=== PATIENT | female | born 1975 | race Caucasian/White ===

== ENCOUNTER 2016-04-04 21:35 | Emergency (ER) ==
[~2016-04-04 21:35] MED LIST: ATIVAN IV ONE
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
[2016-04-04] MEDS ORDERED: TYLENOL PO ONE (23:04)
[2016-04-04] MEDS ORDERED: FLEXERIL PO ONE (23:05)
[2016-04-04 23:40] VITALS: BP 125/89
--- NOTE | 2016-04-05 09:10 | Diag Imaging Result Document ---
PROCEDURE NAME: CHEST-2 VIEWS - 04/04/2016 TWO VIEWS OF THE CHEST: FINDINGS: There is no evidence of acute cardiac or pulmonary disease. Compared to the previous examination of 03/19/2016, there has been resolution of the atelectasis seen previously in the right middle lobe. IMPRESSION: No acute disease.
== END 2016-04-04 23:40 | disposition home or self-care (01) ==
LOC: EDBD → ED 21:35
DX: F43.0 Acute stress reaction (principal); R05 Cough; R11.2 Nausea with vomiting, unspecified; R50.9 Fever, unspecified; R55 Syncope and collapse; R53.83 Other fatigue; R06.02 Shortness of breath; R06.2 Wheezing; R06.4 Hyperventilation; M79.673 Pain in unspecified foot; S90.422A Blister (nonthermal), left great toe, initial encounter; S90.821A Blister (nonthermal), right foot, initial encounter; I10 Essential (primary) hypertension; J43.9 Emphysema, unspecified; E11.9 Type 2 diabetes mellitus without complications; Z87.442 Personal history of urinary calculi
CPT/HCPCS: 71020; J2060

== ENCOUNTER 2016-04-10 19:05 | Emergency (ER) ==
--- NOTE | 2016-04-10 20:13 | PROVIDER DOCUMENTATION ---
HPI-General Adult - General Chief Complaint: Cold Symptoms Stated Complaint: COUGH Time Seen by Provider: 04/10/16 19:16 Source: patient Allergies/Adverse Reactions: Patient Allergies Allergy/AdvReac Type Severity Reaction Status Date / Time meperidine HCl * AdvReac Mild Unknown Verified 04/10/16 19:16 [From Demerol] morphine AdvReac Mild Unknown Verified 04/10/16 19:16 Home Medications: Home Medication List Medication Instructions Recorded Confirmed Last Taken Type Azithromycin [Zithromax Z-Sen] 250 mg PO DIRECTED #1 pkg 04/10/16 Unknown Rx Methylprednisolone [Medrol Dosepak] 4 mg PO DIRECTED #1 package 04/10/16 Unknown Rx - History of Present Illness -Gen Adult Nature of Presenting Problems: Pt is a 41 y/o F c chief complaint of cough and cold symptoms for nearly 2 weeks. Pt states OTC meds have not relieved her symptoms. Pt denies CP or SOB. She has a h/o COPD and has significant wheezing. Pt smokes 1ppd Cigarettes daily. On arrival, pt is in minimal distress. Review of Systems - Adult - REVIEW OF SYSTEMS - ADULT Constitutional: reports: no symptoms reported. denies: chills, fatique Eyes: reports: no symptoms reported. denies: blurred vision, double vision Ears, Nose, Mouth & Throat: reports: no symptoms reported. denies: ear pain, nose pain Cardiovascular: reports: no symptoms reported. denies: chest pain, heart murmur Respiratory: reports: cough, wheezing Gastrointestinal: reports: no symptoms reported. denies: abdominal pain, nausea Genitourinary: reports: no symptoms reported. denies: dysuria, hematuria Musculoskeletal: reports: no symptoms reported. denies: joint pain, joint swelling Integumentary: reports: no symptoms reported. denies: itching, rash Neurological: reports: no symptoms reported. denies: numbness, paresthesia Psychiatric: reports: no symptoms reported. denies: anxiety, emotional problems Endocrine: reports: no symptoms reported. denies: cold intolerance, heat intolerance Hematologic/Lymphatic: reports: no symptoms reported. denies: blood clots, low blood count Allergic/Immunologic: reports: no symptoms reported All Other Systems: Reviewed and Negative Past History - Adult - PAST MEDICAL HISTORY-ADULT Review of Records: reports: Old Records Reviewed, Nursing Assessment Review, Medications Reviewed, Social history reviewed & non-contributory. Major Childhood Illnesses: reports: denies history Cardiovascular: reports: HTN Respiratory: reports: COPD (emphysema) Gastrointestinal: reports: denies history Obstetrical/Gynecological: reports: denies history Genitourinary: reports: kidney stones Musculoskeletal: reports: denies history Neurological: reports: denies history Psychiatric: reports: anxiety, bipolar, psychiatric problems Endocrine/Immune: reports: Diabetes Other Conditions: reports: denies history - PRIOR SURGERIES/PROCEDURES Surgical/Procedure History: reports: cholecystectomy, BTL, tonsillectomy, other (kidney stone removal, upper gi, nose, cardiac catheter, D & C) - PRIOR HOSPITALIZATIONS Prior Hospitalizations: reports: none - IMMUNIZATION STATUS Childhood Immunizations: UTD, See Nurse Assessment Flu Vaccine: See Nurse Assessment - FAMILY HISTORY Family History: reviewed, not pertinent - SOCIAL HISTORY Smoking: cigarettes Provider spent 3-5 mins advising pt. on dangers of tobacco.: Discussed manners to quit use, and f/u contacts for add'l counseling. Substance Use: none/never Alcohol Use Frequency: never Living Situation: family Physical Exam-General - PHYSICAL EXAM-ADULT Initial Vital Signs Reviewed: Yes - CONSTITUTIONAL General Appearance: appears well, alert, no apparent distress - EYES Eyes: PERRL/EOMI, pink conjunctivae - HEAD, EARS, NOSE, MOUTH & THROAT HENMT: normocephalic/atraumatic, moist mucous membranes, normal ENT inspection - NECK Neck: non-tender - RESPIRATORY Respiratory: chest non-tender, wheezing (cough and wheezing) - CARDIOVASCULAR Cardiovascular: normal peripheral pulses - CHEST (BREASTS) Chest/Breast: deferred - GASTROINTESTINAL (ABDOMEN) Abdominal Exam: normal bowel sounds, non tender, soft - MUSCULOSKELETAL Back Exam: normal inspection, no CVA tenderness, no vertebral tenderness Extremity: normal range of motion, non-tender, normal gait - SKIN Integumentary: normal color, normal turgor, warm/dry - NEUROLOGIC Neurologic: grossly normal, no motor/sensory deficits - PSYCHIATRIC Psych/Mental Status: normal mood/affect, normal thought content, normal thought process, oriented x 3 Progress - PLAN OF CARE/RESULTS Progress/Plan/Lab Results: Orders Category Date Time Status CHEST-2 VIEWS [RAD] Stat Exams 04/10/16 20:25 Completed Flu Swab [INFLUENZA SCREEN A/B] Stat Lab 04/10/16 19:10 Completed Albuterol 2.5MG/Ipratrop 0.5MG [Duoneb (A & A)] Med 04/10/16 20:25 Discontinued 6 ml INH NOW ONE CefTRIAXONE [Rocephin] Med 04/10/16 20:25 Discontinued 1 gm IM NOW ONE Dexamethasone [Decadron] Med 04/10/16 20:25 Discontinued 10 mg IM NOW ONE Lidocaine 1% Pf [Xylocaine-Mpf 1%] Med 04/10/16 20:25 Discontinued 5 ml INJ NOW ONE Aerosol Treatments Routine Oth 04/10/16 20:25 Completed Aerosol Treatments Stat Oth 04/10/16 20:25 Completed Vital Signs - 24 hr 04/10/16 04/10/16 04/10/16 19:11 21:00 21:22 Temperature 98.3 F Pulse Rate 103 H 100 H 67 Respiratory 18 18 18 Rate Blood Pressure 112/71 116/62 O2 Sat by Pulse 100 98 Oximetry - XRAY 1 XRAY Study: Chest Impression: Abnormal (Prominent juan-hilar markings that may represent bronchitis - radiology) Departure - Departure Time of Disposition Order: 20:44 DIAGNOSIS: Bronchitis, Tobacco abuse Disposition: HOME 01 Certified Medical Emergency: Emergent Condition: Stable Additional Instructions: ED Follow Up Instructions: You have been treated by a care provider in the Emergency Department. These instructions are being provided to you so you can have an understanding of how to care for yourself upon discharge. Upon discharge from the Emergency Department, you are responsible for making arrangements for follow-up care by a physician of your choice. Take all prescribed medications as directed. Return to the Emergency Department immediately for any new or worsening symptoms. You may call the Physician Referral phone number at [phone] to obtain a list of Physicians who are taking new patients. Prescriptions: Methylprednisolone [Medrol Dosepak] 4 mg PO DIRECTED #1 package Azithromycin [Zithromax Z-Sen] 250 mg PO DIRECTED #1 pkg Referrals: None,PCP [Primary Care Provider] - Forms: Return to School/Parent Work Instructions: Tobacco Use Disorder, Acute Bronchitis Attestation - Physician/ LADY Attestation Patient care was provided by Advanced Practice Provider:: Yes Advanced Practice Provider:: Jose Miller Advanced Practice Provider documentation review:: The Mid-level provider documentation, treatment plan and medical decision making was reviewed by the physician who agrees with all treatment and medical decision making by the MLP.
[2016-04-10] MEDS ORDERED: DECADRON IM ONE (20:25)
[2016-04-10] MEDS ORDERED: XYLOCAINE-MPF 1% INJ ONE (20:25)
[2016-04-10] MEDS ORDERED: ROCEPHIN IM ONE (20:25)
[2016-04-10] MEDS ORDERED: DUONEB (A & A) INH ONE (20:25)
[2016-04-10 21:23] VITALS: BP 116/62
--- NOTE | 2016-04-11 09:28 | Diag Imaging Result Document ---
PROCEDURE NAME: CHEST-2 VIEWS - 04/10/2016 CHEST, 2 VIEWS: COMPARISON: 04/04/2016. FINDINGS: Heart size is normal. There is mild prominence of perihilar markings, most conspicuous on the left. There is no dense consolidation, pleural effusion, or pneumothorax identified. There is a tiny metallic foreign body noted over the anterior upper chest at the midline compatible with an object such as a neckless on the patient's skin. IMPRESSION: Prominence of perihilar markings which may relate to bronchitis. No discrete pneumonia.
== END 2016-04-10 21:33 | disposition home or self-care (01) ==
LOC: ED 19:05
DX: J40 Bronchitis, not specified as acute or chronic (principal); R05 Cough; R06.2 Wheezing; I10 Essential (primary) hypertension; J44.9 Chronic obstructive pulmonary disease, unspecified; F17.210 Nicotine dependence, cigarettes, uncomplicated; E11.9 Type 2 diabetes mellitus without complications; Z71.6 Tobacco abuse counseling; Z87.442 Personal history of urinary calculi
CPT/HCPCS: 71020; 87804; 94640; J0696

== ENCOUNTER 2016-04-24 13:46 | Emergency (ER) ==
[2016-04-24 14:06] VITALS: BP 133/89
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
[2016-04-24 16:11] LABS: URINE CULTURE NEEDED? NO; URINE SOURCE CLEAN CATCH
[2016-04-24] MEDS ORDERED: ATIVAN IM ONE (16:20)
[2016-04-24 16:44] LABS: BILIRUBIN URINE NEGATIVE (NEGATIVE); BLOOD URINE NEGATIVE (NEGATIVE); COLOR YELLOW; GLUCOSE URINE NEGATIVE (NEGATIVE); LEUKOCYTES URINE NEGATIVE (NEGATIVE); NITRITE URINE NEGATIVE (NEGATIVE); PROTEIN URINE NEGATIVE (NEGATIVE); SP GRAVITY URINE 1.021; TURBIDITY URINE CLEAR (CLEAR); UROBILINOGEN URINE NORMAL (NORMAL)
[2016-04-24 16:45] LABS: URINE MICRO REVIEW NEEDED? YES
[2016-04-24 17:03] LABS: UR EPITHELIAL CELLS <10 /HPF (<10); URINE BACTERIA NEGATIVE /HPF; URINE CASTS NONE SEEN; URINE CRYSTALS CA OXALATE PRESENT; URINE RBC <10 /HPF (<10); URINE SMALL ROUND CELLS NONE SEEN; URINE WBC <10 /HPF (<10)
[2016-04-24 17:06] LABS: UR AMPHETAMINES QUAL NONE DETECTED (NONE DETECT); UR BARBITUATES QUAL PRESUMPTIVE POSITIVE (NONE DETECT); UR BENZODIAZEPIN QUAL PRESUMPTIVE POSITIVE (NONE DETECT); UR CANNABINOIDS QUAL NONE DETECTED (NONE DETECT); UR COCAINE QUAL NONE DETECTED (NONE DETECT); UR METHADONE QUAL NONE DETECTED (NONE DETECT); UR OPIATES QUAL NONE DETECTED (NONE DETECT); UR OXYCODONE QUAL NONE DETECTED (NONE DETECT); UR PCP QUAL NONE DETECTED (NONE DETECT)
== END 2016-04-24 17:10 | disposition home or self-care (01) ==
LOC: ED 13:46
DX: F41.9 Anxiety disorder, unspecified (principal); I10 Essential (primary) hypertension; J44.9 Chronic obstructive pulmonary disease, unspecified; E11.9 Type 2 diabetes mellitus without complications; F41.8 Other specified anxiety disorders; Z79.899 Other long term (current) drug therapy; Z87.442 Personal history of urinary calculi
CPT/HCPCS: 81001; 81025; 96374; G0480; J2060; 80324; 80345; 80346; 80349; 80353; 80358; 80361; 80365; 83992

== ENCOUNTER 2016-08-22 10:15 | Observation (INO) ==
[2016-08-22] MEDS ORDERED: NORCO-7.5 PO ONE (11:25)
[2016-08-22] MEDS ORDERED: ZOFRAN ODT PO ONE (11:25)
[2016-08-22] MEDS ORDERED: NORCO-7.5 ONE (11:26)
[2016-08-22] MEDS ORDERED: ZOFRAN ODT ONE (11:26)
[2016-08-22 12:21] LABS: BASO% 0.6 % (0.0-0.8); EOS# 0.15 X1000 (0.0-0.7); EOS% 1.9 % (0.0-10.0); HEMATOCRIT 41.3 % (37.0-47.0); HEMOGLOBIN 13.8 g/dL (12.0-16.0); IMM GRAN# 0.01 X1000 (0.0-0.04); IMM GRAN% 0.1 % (0.0-0.5); LYMPH# 2.91 X1000 (1.2-3.4); LYMPH% 36.7 % (20.5-51.1); MANUAL DIFF NEEDED? NO; MCH 30.4 PG (27-31); MCHC 33.4 g/dL (33-37); MONO# 0.64 X1000 (0.11-0.59); MONO% 8.1 % (1.7-9.3); MPV 10.4 FL (7.4-10.4); NEUT% 52.6 % (42.2-75.2); PLT 266 X1000 (130-400); RBC 4.54 XMIL (4.2-5.4)
[2016-08-22 12:21] LABS: URINE CULTURE PL NEEDED? NO
[2016-08-22] MEDS ORDERED: ZOFRAN PO PRN (12:22)
[2016-08-22] MEDS ORDERED: VANCOMYCIN 1 GM/NS 1 GM/250 ML IVPB IV ONE (12:24)
[2016-08-22 12:31] LABS: BILIRUBIN URINE NEGATIVE (NEGATIVE); BLOOD URINE NEGATIVE (NEGATIVE); CLARITY CLEAR (CLEAR); COLOR YELLOW; GLUCOSE URINE NEGATIVE (NEGATIVE); LEUKOCYTES URINE NEGATIVE (NEGATIVE); NITRITE URINE NEGATIVE (NEGATIVE); PROTEIN URINE NEGATIVE (NEGATIVE); SP GRAVITY URINE 1.005; UROBILINOGEN URINE NORMAL
--- NOTE | 2016-08-22 12:33 | PROVIDER DOCUMENTATION ---
This chart was entered by Nataliia Mckeon Scribe, acting as scribe for Ángel Nava PA. HPI-Rash/Wound/ReCheck - General Chief Complaint: Post Op Complaint Stated Complaint: POST OPT COMPLAINT Time Seen by Provider: 08/22/16 11:05 Source: patient Allergies/Adverse Reactions: Allergies Allergy/AdvReac Type Severity Reaction Status Date / Time meperidine HCl * AdvReac Mild Unknown Verified 08/22/16 10:41 [From Demerol] morphine AdvReac Mild Unknown Verified 08/22/16 10:41 Home Medications: Home Medication List Medication Instructions Recorded Confirmed Last Taken Type Clonazepam [Klonopin] 2 mg PO PRN PRN 04/24/16 08/17/16 4 Days Ago History Hydrocodone/Acetaminophen [[place] 1 each PO Q6H PRN PRN #20 tablet 07/27/1608/17 1 Day Ago Rx 7.5-325 Tablet] Clindamycin [Cleocin] 300 mg PO TID #21 capsule 08/18/16 Unknown Rx - History of Present Illness-Dermatology Nature of Presenting Problem: 41 year old female presents to the ER with complaint of a post op wound infection of right breast above the nipple at surgery site. Pt had sx two weeks ago for right breast biopsy. Pt was seen at [facility] one week ago for wound infection. Culture of would one week ago showed no growth. Today pt presents with erythema around wound with foul odor drainage. Pt denies fever but states she is in severe pain and is hallucinating. Location: reports: chest (right breast) Onset/Duration: reports: other (2 weeks) Timing: reports: still present Context/Associated Symptoms: reports: incised wound Review of Systems - Adult - REVIEW OF SYSTEMS - ADULT Constitutional: denies: chills, fever Eyes: reports: no symptoms reported Ears, Nose, Mouth & Throat: reports: no symptoms reported Cardiovascular: reports: no symptoms reported Respiratory: reports: no symptoms reported Gastrointestinal: reports: no symptoms reported Genitourinary: reports: no symptoms reported Musculoskeletal: reports: no symptoms reported Integumentary: reports: no symptoms reported Neurological: reports: no symptoms reported Psychiatric: reports: no symptoms reported Endocrine: reports: no symptoms reported Hematologic/Lymphatic: reports: no symptoms reported Allergic/Immunologic: reports: no symptoms reported All Other Systems: Reviewed and Negative Past History - Adult - PAST MEDICAL HISTORY-ADULT Review of Records: reports: Nursing Assessment Review, Medications Reviewed Major Childhood Illnesses: reports: denies history Cardiovascular: reports: HTN Respiratory: reports: COPD (emphysema) Gastrointestinal: reports: denies history Obstetrical/Gynecological: reports: denies history Genitourinary: reports: kidney stones Musculoskeletal: reports: denies history Neurological: reports: denies history Psychiatric: reports: anxiety, bipolar, psychiatric problems Endocrine/Immune: reports: Diabetes Other Conditions: reports: denies history - PRIOR SURGERIES/PROCEDURES Surgical/Procedure History: reports: cholecystectomy, BTL, tonsillectomy, other (kidney stone removal, upper gi, nose, cardiac catheter, D & C) - PRIOR HOSPITALIZATIONS Prior Hospitalizations: reports: none - IMMUNIZATION STATUS Childhood Immunizations: UTD, See Nurse Assessment Flu Vaccine: See Nurse Assessment - FAMILY HISTORY Family History: reviewed, not pertinent Physical Exam-General - PHYSICAL EXAM-ADULT Initial Vital Signs Reviewed: Yes - CONSTITUTIONAL General Appearance: alert, moderate distress (Pt continues to state that she's going to from this breast abscess and she's in so much pain, that oral pain medication will not help enough) - EYES Eyes: PERRL/EOMI, pink conjunctivae - HEAD, EARS, NOSE, MOUTH & THROAT HENMT: normocephalic/atraumatic, moist mucous membranes - NECK Neck: full range of motion, supple, normal inspection - RESPIRATORY Respiratory: lungs clear. negative: chest non-tender (tender on the right breast), crackles, rales, rhonchi, stridor, wheezing - CARDIOVASCULAR Cardiovascular: no edema, no gallop, no JVD, no murmur, tachycardia - CHEST (BREASTS) Chest/Breast: tenderness. negative: normal breast inspection (erythematous breast abscess with purulent foul smelling drainage. Pt has significant pain while I expressed fluid), nipple discharge - SKIN Integumentary: erythema (as above in the right breast) - NEUROLOGIC Neurologic: personnel counselor II-XII nml as tested - PSYCHIATRIC Psych/Mental Status: anxious, tearful, other (pt is talking so quickly and unable to understand everything she's saying other than she's in pain and she's going to from it. She became upset takling about her visit to [facility], stating that there were "junkies with no problems getting seen before me and I'm legit! I'm dying!") Progress - PLAN OF CARE/RESULTS Progress/Plan/Lab Results: Vital Signs - 8 hr 08/22/16 10:35 Temperature 98.4 F Pulse Rate 108 H Respiratory Rate 18 Blood Pressure 109/097 O2 Sat by Pulse Oximetry 99 Laboratory Results - last 24 hr 08/22/16 08/22/16 11:48 12:05 WBC 7.92 RBC 4.54 Hgb 13.8 Hct 41.3 MCV 91.0 MCH 30.4 MCHC 33.4 RDW Std Deviation 13.4 Plt Count 266 MPV 10.4 Immature Gran % (Auto) 0.1 Neut % (Auto) 52.6 Lymph % (Auto) 36.7 [place] % (Auto) 8.1 Eos % (Auto) 1.9 Baso % (Auto) 0.6 Immature Gran # (Auto) 0.01 Neut # (Auto) 4.16 Lymph # (Auto) 2.91 [place] # (Auto) 0.64 H Eos # (Auto) 0.15 Baso # (Auto) 0.05 Urine Color YELLOW Urine Clarity CLEAR Urine pH 7.0 Ur Specific [place] 1.005 Urine Protein NEGATIVE Urine Ketones NEGATIVE Urine Blood NEGATIVE Urine Nitrite NEGATIVE Urine Bilirubin NEGATIVE Urine Urobilinogen NORMAL Urine WBC NEGATIVE Urine Glucose NEGATIVE Orders Category Date Time Status Admit - [facility] Routine AdmDCTranf 08/22/16 12:22 Ordered Saline Loc NOW Care 08/22/16 11:46 Active Regular Diet Diet 08/22/16 12:23 Active CHEST-2 VIEWS [RAD] Stat Exams 08/22/16 11:46 Taken BLOOD CULTURE [BLDCUL] Stat Lab 08/22/16 11:46 Ordered CBC WITH DIFF [HEME] Stat Lab 08/22/16 12:05 Completed COMPREHENSIVE METABOLIC PANEL [CHEM] Stat Lab 08/22/16 12:05 Received UA NIMS W/REFLEX CULT PL [URINALYSIS] Stat Lab 08/22/16 11:48 Received Hydrocodone/APAP 7.5 mg/325 mg [[place]-7.5] Med 08/22/16 11:26 Discontinued 1 each .ROUTE .STK-MED ONE Hydrocodone/APAP 7.5 mg/325 mg [[place]-7.5] Med 08/22/16 11:25 Discontinued 1 each PO NOW ONE Ondansetron Odt [Zofran Odt] Med 08/22/16 11:26 Discontinued 4 mg .ROUTE .STK-MED ONE Ondansetron Odt [Zofran Odt] Med 08/22/16 11:25 Discontinued 4 mg PO NOW ONE Ondansetron [Zofran] Med 08/22/16 12:22 Active 4 mg PO Q6H PRN PRN Vancomycin 1 gm IV Now Med 08/22/16 12:24 Ordered Vancomycin 1 gm/Ns 1 gm in 250 ml IV NOW Transfer/Admit Order [TRANSFER] Routine Transfer 08/22/16 12:23 Ordered Result Diagrams: 08/22/16 12:05 - REASSESSMENT Reassessment #1 Time Reassessed: 12:16 (Dr. López called the ER, as pt has been calling him and calling the staff occupational therapy supervisor regarding her care here. Ok to admit to his service , he will come see pt in the ED or the floor depending on where she is when he gets here. ) Reassessment #2 Time Reassessed: 12:31 (Pt came back from x ray and I went to see her to reassess lung sounds and recheck her, and let her know that Dr. López is going to admit her. Pt states that we don't understand her pain, we aren't treating her, no one is listening to her. Per Dr. López instructions, he said to keep give her oral pain medication. Pt does nto have IV yet. While I was in the room she became very upset, started to throw her glasses, and told me I better leave or she's going to do something stupid and we will have to call 911. ) - CONSULTS/PCP/HOSPITALIST Notification #1 *Consult/PCP/Hospitalist*: Dr. López Time Discussed: 12:16 (Admit pt under his service, start Vancomycin and PO pain medications. ) Consult Disposition: Admit Departure - Departure Date of Disposition Decision: 08/22/16 Time of Disposition Decision: 12:18 DIAGNOSIS: Breast abscess Disposition: ADMITTED INPATIENT 09 Certified Medical Emergency: Emergent Condition: Stable Referrals and Follow-Ups: Donald Rojas MD [Primary Care Provider] - - Critical Care Note This patient required my direct & personal management of CC.: No Attestation - Physician/ LADY Attestation Patient care was provided by Advanced Practice Provider:: Yes Advanced Practice Provider:: Ángel Nava Advanced Practice Provider documentation review:: The Mid-level provider documentation, treatment plan and medical decision making was reviewed by the physician who agrees with all treatment and medical decision making by the MLP. This chart was documented by the indicated scribe, (Nataliia Mckeon, Helio) and accurately reflects the services I performed and decisions made by , Ángel Nava PA, as attested by the provider's signature.
--- NOTE | 2016-08-22 12:36 | Diag Imaging Result Doc PS360 ---
EXAM: CHEST-2 VIEWS HISTORY: chest pain, breast infection TECHNIQUE: 04/10/2016 COMPARISON: None. FINDINGS: The lungs are well expanded. The heart is not enlarged. The vessels are not distended. There are no infiltrates. No pleural effusions. IMPRESSION: No acute abnormality. Electronically signed by Jayy Short 08/22/2016 12:33 PM
[2016-08-22 12:55] LABS: URINE EPITHELIAL CELLS <10 /HPF (<10); URINE SOURCE CLEAN CATCH
[2016-08-22 13:09] LABS: AGAP 10; ALBUMIN 4.1 g/dL (3.5-5.0); ALKALINE PHOSPHATASE 73 U/L (32-104); BUN 13 mg/dL (8-22); CALCIUM 9.1 mg/dL (8.8-10.2); CHLORIDE 98 mmol/L (98-107); COSMO 269; GOT 14 U/L (10-30); GPT 10 U/L (10-36); POTASSIUM 4.1 mmol/L (3.5-5.1); SODIUM 135 mmol/L (136-145); TCO2 27 mmol/L (25-35); TOTAL BILIRUBIN < 0.15 mg/dL (0.20-1.00); TOTAL PROTEIN 7.5 g/dL (6.3-8.3)
[2016-08-22] MEDS ORDERED: VANCOMYCIN IV PER PHARMACY MISC SCH (14:48)
[2016-08-22] MEDS ORDERED: NORCO-5 PO PRN ×2 (14:48→17:16)
[2016-08-22] MEDS: KLONOPIN PO PRN (15:49)
[2016-08-22] MEDS: NICODERM PATCH TD SCH (15:49)
[2016-08-22] MEDS ORDERED: VANCOMYCIN 1,900 MG in NS 500 ML IV ONE (16:00)
--- NOTE | 2016-08-22 16:54 | HISTORY AND PHYSICAL ---
ADMITTING DIAGNOSIS: Is right breast abscess. HISTORY OF PRESENT ILLNESS: A 41-year-old, female, known to my partner, Dr. Rojas, who had fat necrosis to her right breast. She underwent breast biopsy over a month ago. She apparently developed an infection in her postoperative site which Dr. Rojas saw and drained some purulence in the office. She apparently then came back last week. She called me over the phone this weekend stating she is having increasing pain and was "about to " from the pain. Discussed with her over the phone the need to go to the emergency department. Given this, she initially stated she did not want to [address] so I directed her to [facility]. Upon arriving at [facility] she was evaluated by the emergency department. They did express some purulence although by report and documentation she did have some threatening comments to the ER staff at that time. She has subsequently calmed down and was transferred up to the floor. I saw her up on the floor. She did have some purulence draining from her right breast. There was some erythema noted to the right breast. She was in pain associated with this in the right breast. Again her biopsy was over a month ago. The pathology showed fat necrosis. PAST MEDICAL HISTORY INCLUDES: Arthritis, asthma, hypertension and unspecified mental illness. PAST SURGICAL HISTORY: Includes cholecystectomy, tubal ligation. MEDICATIONS: Klonopin. She had been on clindamycin. ALLERGIES: Morphine derivatives. FAMILY HISTORY: Reviewed with patient but noncontributory. SOCIAL HISTORY: The patient is a smoker. PHYSICAL EXAMINATION: VITAL SIGNS: Patient is currently afebrile. Temperature 99.0 degrees, pulse 98, respiratory rate 18, blood pressure 124/64, O2 saturation 100% on room air. GENERAL: No acute distress. female, looks stated age. HEENT: Normocephalic, atraumatic. Pupils equal, round, reactive to light. Mucous membranes moist. Oropharynx benign. NECK: Supple. Trachea midline. CARDIOVASCULAR: Regular rate and rhythm. LUNGS: Grossly clear. CHEST WALL: The right breast shows some erythema and tenderness. I was able to express some purulence. I did this exam under field sales representative guidance. There is some fluctuance on the right breast at the 12 o'clock position, and again she has drained some purulence from her previous incision. ABDOMEN: Soft, nontender, nondistended. EXTREMITIES: Moves all extremities. NEUROLOGIC: Grossly intact. SKIN: Erythema as noted above. VASCULAR: All extremities perfused. LABORATORY: White blood cell count is 7. Remainder of labs reviewed. IMAGING: She did have a chest x-ray essentially with no abnormality. ASSESSMENT/PLAN: A 41-year-old, female with right breast abscess. #1 right breast abscess. At this time she has essentially failed outpatient therapy. I opened her breast incision at the bedside. Please see that dictation. I drained a significant amount of purulence but she has been on clindamycin so I did not suspect additional cultures will prove anything although she did have cultures done by report in the emergency department. I started her on IV vancomycin. Will watch her. I will let Dr. Rojas know that she is back in the hospital. cc: Rickey López MD
--- NOTE | 2016-08-22 17:48 | OPERATIVE NOTE ---
PROCEDURE DATE: 08/22/2016 PREOPERATIVE DIAGNOSIS: Right breast abscess. POSTOPERATIVE DIAGNOSIS: Right breast abscess. PROCEDURE: Incision and drainage of right breast abscess. SURGEON: Rickey López MD. MONITORING AND EVALUATION ADVISOR: None. ANESTHESIA: Local administered by the surgeon. FINDINGS: Purulence drained from the right breast. BRIEF HISTORY: The patient is a 41-year-old female with a right breast abscess after a biopsy. She had been on clindamycin outpatient but had apparently failed. She was in excruciating pain and wanted it drained. The risks, benefits, alternatives were discussed. She signed the consent. We performed the procedure under briar wood sorter guidance. DESCRIPTION OF PROCEDURE: After informed consent obtained, patient remained in her hospital bed. The right breast was identified, the patient and the area. We used alcohol prep to clean the skin. There was some purulence already draining. We used local anesthetic with 1% lidocaine to anesthetize the area above the areolar complex where she was draining. Once we had done satisfactory anesthesia I used a 15 blade to extend the incision both medially and laterally to allow free drainage of the purulence. I pushed and drained a significant amount of purulence from the area. I probed it and was able break up all the loculations. I then placed a corner of a 4 x 4 into the wound. The patient tolerated the procedure well, had a sterile dressing applied. Postoperatively, we will follow up with the cultures drawn from the ER and remove the packing in 24 hours. cc: Rickey López MD
[2016-08-22] MEDS: ZOFRAN IV PRN ×2 (18:03→21:50)
[2016-08-22] MEDS: NORCO-5 PO PRN ×2 (18:03→21:50)
[2016-08-23] MEDS: KLONOPIN PO PRN ×3 (00:09→17:56)
[2016-08-23] MEDS: NORCO-5 PO PRN ×4 (02:00→18:50)
[2016-08-23] MEDS: ZOFRAN IV PRN ×2 (02:04→06:15)
[2016-08-23] MEDS: VANCOMYCIN 1,500 MG in NS 250 ML IV SCH ×2 (03:07→16:10)
[2016-08-23] MEDS: TORADOL IV SCH ×3 (09:16→20:06)
[2016-08-23] MEDS: NICODERM PATCH TD SCH (09:16)
--- NOTE | 2016-08-23 09:59 | PROGRESS NOTE ---
DATE: 08/23/2016 SUBJECTIVE: Patient resting comfortably, actually on her right side when I came into the room. I reviewed the nurse's notes from over the night. She apparently had made additional threat to the nursing staff over the night, threatened to call her pit crew support worker but did not do any additional physical violence. When I entered the room again, she was sleeping comfortably on her right side, in acute distress. I removed her packing which she tolerated well. OBJECTIVE: Vital Signs: Patient is currently afebrile. Her vital signs have been stable. General Examination: No acute distress. Cardiovascular: Regular rate and rhythm. Lungs: Grossly clear. Abdomen: Soft, nondistended. Breasts: Right breast, the erythema seems to be slightly improved. Overall, the wound appears to be improving. I was unable to express any more purulence. ASSESSMENT AND PLAN: A 41-year-old, female with a right breast abscess. Right breast abscess. At this time, I will continue vancomycin, let Dr. Rojas see her in the morning. I added intravenous Toradol. Patient's blood pressure in the 90s systolic, although likely normal for her, prohibits any more additional pain medicine, especially intravenous pain medicine which the patient is requesting with that and intravenous nausea medicine at the same time. At this time, she is receiving more pain medicine than she did at home and, again, in addition to the Toradol, that should be sufficient. She is on antinausea medicine but I do not suspect the patient's blood pressure could tolerate both applications of intravenous at the same time. We will continue to follow her. At this time, she did not make any overt threats while I was in the room but will continue to monitor her for any kind of additional threats that she is making to the nursing staff. cc: Rickey López MD
[2016-08-23 20:43] VITALS: BP 146/88
== END 2016-08-23 23:30 | disposition home or self-care (01) ==
LOC: P.ED 10:15 → INTOOBSV 13:11 → P.MEDSURG 13:11
PROVIDERS: ADMIT Surgery; ATTEND Surgery